=== PATIENT | male | born 1995 | race African-American/Black ===

== ENCOUNTER 2023-12-06 14:15 | Inpatient (IN) | payer BC, OTHER ==
[2023-12-06 14:49] VITALS: BMI 35.2
[2023-12-06 15:19] LABS: BASO % 0.6 % (0-2.0); EOS % 0.2 % (0-4.5); HEMATOCRIT 44.7 % (35.4-49); HEMOGLOBIN 14.4 GM/dL (11.7-16.9); LYMPH % 11.8 % (8-40); MCH 26.9 pg (25.7-33.7); MCHC 32.2 g/dl (32.0-35.9); MEAN CELL VOLUME 83.8 fl (80-96); MEAN PLT VOLUME 7.5 fl (7.5-11.1); MONO % 8.6 % (3.8-10.2); NEUT % 78.8 % (42.8-82.8); PLATELET COUNT 314 10^3/uL (134-434); RBC 5.34 M/mm3 (4.00-5.60); RDW 14.9 % (11.9-15.9); WHITE BLOOD COUNT 8.8 K/mm3 (4.0-10.0)
[2023-12-06 15:37] LABS: CHLORIDE 106 mmol/L (98-107); SODIUM 138 mmol/L (136-145)
[2023-12-06 15:39] LABS: ALBUMIN 4.6 g/dl (3.4-5.0); CALCIUM 10.7 mg/dL (8.5-10.1)
[2023-12-06 15:40] LABS: ANION GAP 10 mmol/L (4-13); BLOOD UREA NITROGEN 8.5 mg/dL (7-18); CO2 22 mmol/L (21-32); GLUCOSE,RANDOM 105 mg/dL (74-106)
[2023-12-06 15:43] LABS: CREATININE 1.2 mg/dL (0.55-1.3); SGOT/AST 41 U/L (15-37); SGPT/ALT 32 U/L (13-61)
[2023-12-06 15:44] LABS: BILIRUBIN,TOTAL 0.8 mg/dL (0.2-1); TOT PROT 8.2 g/dl (6.4-8.2)
[2023-12-06 15:45] LABS: ALK PHOS 78 U/L (45-117)
[2023-12-06 15:46] LABS: PH,URINE 5.5 (5.0-8.0); URINE APPEARANCE CLEAR; URINE BILIRUBIN NEGATIVE (NEGATIVE); URINE COLOR YELLOW; URINE GLUCOSE (UA) NEGATIVE (NEGATIVE); URINE KETONE TRACE (NEGATIVE); URINE LEUK ESTERASE NEGATIVE (NEGATIVE); URINE NITRITE NEGATIVE (NEGATIVE); URINE PROTEIN NEGATIVE (NEGATIVE); URINE UROBILINOGEN 0.2 mg/dL (0.2-1.0)
[2023-12-06 16:05] LABS: METHADONE, UR NEGATIVE (NEGATIVE)
[2023-12-06 16:06] LABS: OPIATES, URI NEGATIVE (NEGATIVE); PHENCYCLIDINE,URINE NEGATIVE (NEGATIVE); URINE BARBITURATES NEGATIVE (NEGATIVE); URINE BENZODIAZEPINES NEGATIVE (NEGATIVE)
[2023-12-06 16:08] LABS: COCAINE, UR NEGATIVE (NEGATIVE); URINE AMPHETAMINES NEGATIVE (NEGATIVE)
[2023-12-06] MEDS ORDERED: OLANZapine 10 MG TABLET PO ONE (16:20)
[2023-12-06] MEDS ORDERED: LORazepam 1 MG TABLET PO SCH (16:30)
[2023-12-06] MEDS ORDERED: LORazepam 1 MG TABLET ONE (16:50)
[2023-12-06] MEDS ORDERED: chlordiazePOXIDE HCL 25 MG CAPSULE PO PRN (17:27)
[2023-12-06] MEDS ORDERED: chlordiazePOXIDE HCL 25 MG CAPSULE ONE ×3 (18:37→21:38)
[2023-12-06] MEDS ORDERED: SODIUM CHLORIDE 1,000 ML IV SCH (19:00)
[2023-12-06] MEDS ORDERED: MELATONIN 5 MG TABLETS ONE (21:36)
[2023-12-06] MEDS: chlordiazePOXIDE HCL 25 MG CAPSULE PO SCH (21:53)
[2023-12-06] MEDS ORDERED: MELATONIN 5 MG TABLETS PO SCH (22:00)
[2023-12-06] MEDS ORDERED: OLANZapine 10 MG TABLET PO SCH (22:00)
[2023-12-07] MEDS ORDERED: HALOPERIDOL LACTATE 5 MG/ML IM PRN ×3 (00:40→08:02)
[2023-12-07] MEDS ORDERED: LORazepam 2 MG/ML SDV VIAL IVPUSH PRN ×2 (01:42→08:03)
[2023-12-07] MEDS ORDERED: LORazepam 2 MG/ML SDV VIAL IM PRN (03:13)
[2023-12-07] MEDS ORDERED: HALOPERIDOL LACTATE 5 MG/ML IM ONE ×2 (03:45→07:07)
[2023-12-07] MEDS ORDERED: PHENobarbital SODIUM 65 MG/1 ML VIAL IM ONE (05:03)
[2023-12-07 05:51] VITALS: BP 150/77; PULSE 84; RESP 18; TEMP 98
[2023-12-07] MEDS: chlordiazePOXIDE HCL 25 MG CAPSULE PO SCH (06:30)
[2023-12-07] MEDS ORDERED: LORazepam 2 MG/ML SDV VIAL IVPUSH ONE (07:06)
[2023-12-07 09:09] LABS: BASO % 0.4 % (0-2.0); EOS % 0.5 % (0-4.5); HEMATOCRIT 42.2 % (35.4-49); HEMOGLOBIN 13.5 GM/dL (11.7-16.9); MCH 26.9 pg (25.7-33.7); MCHC 32.1 g/dl (32.0-35.9); MEAN PLT VOLUME 8.8 fl (7.5-11.1); MONO % 10.5 % (3.8-10.2); NEUT % 65.6 % (42.8-82.8); PLATELET COUNT 242 10^3/uL (134-434); RBC 5.02 M/mm3 (4.00-5.60); RDW 14.7 % (11.9-15.9)
[2023-12-07 09:35] LABS: POTASSIUM 3.7 mmol/L (3.5-5.1)
[2023-12-07 09:45] LABS: ALBUMIN 3.8 g/dl (3.4-5.0); CALCIUM 9.5 mg/dL (8.5-10.1)
[2023-12-07 09:46] LABS: BLOOD UREA NITROGEN 7.2 mg/dL (7-18)
[2023-12-07 09:47] LABS: MAGNESIUM 2.1 mg/dL (1.8-2.4); PHOSPHOROUS 3.4 mg/dL (2.5-4.9)
[2023-12-07 09:48] LABS: CREATININE 1.3 mg/dL (0.55-1.3)
[2023-12-07 09:49] LABS: BILIRUBIN,TOTAL 0.8 mg/dL (0.2-1); TOT PROT 7.2 g/dl (6.4-8.2)
[2023-12-07] MEDS ORDERED: ENOXAPARIN NA (PORCINE) 40 MG/0.4 ML DISP.SYRIN SQ SCH (10:00)
[2023-12-07] MEDS ORDERED: FOLIC ACID 1 MG TABLET (FP) PO SCH (10:00)
[2023-12-07] MEDS ORDERED: NICOTINE 21 MG/24 HOURS TOPICAL PATCH TD SCH (10:00)
[2023-12-07] MEDS ORDERED: THIAMINE HCL 100 MG TABLET (FP) PO SCH (10:00)
[2023-12-07 23:44] LABS: HIV INTERPRETATION NEGATIVE (NEGATIVE)
[2023-12-08] MEDS ORDERED: chlordiazePOXIDE HCL 25 MG CAPSULE PO SCH (05:00)
[2023-12-09] MEDS ORDERED: chlordiazePOXIDE HCL 10 MG CAPSULE PO PRN
[2023-12-09] MEDS ORDERED: chlordiazePOXIDE HCL 10 MG CAPSULE PO SCH (05:00)
[2023-12-10] MEDS ORDERED: chlordiazePOXIDE HCL 10 MG CAPSULE PO SCH (05:00)
[2023-12-11] MEDS ORDERED: chlordiazePOXIDE HCL 10 MG CAPSULE PO ONE (05:00)
== END 2023-12-07 11:47 | disposition other institution (70) | DRG 897 ==
LOC: JER 14:15 → JERBED 16:58 → J7W 22:15
PROVIDERS: ADMIT Family Medicine; ATTEND Student in an Organized Health Care Education/Training Program
DX: F10.130 Alcohol abuse with withdrawal, uncomplicated (principal); F20.9 Schizophrenia, unspecified; E83.52 Hypercalcemia; F29 Unspecified psychosis not due to a substance or known physiological condition; R45.1 Restlessness and agitation
CPT/HCPCS: 36415; 80053; 80307; 81003; 82306; 82330; 83735; 83970; 84100; 85025; 86704; 86803; 87389; 87517; 93005; 93010; 99291; 99292; G0378